=== PATIENT | female | born 1990 | race Caucasian/White ===

== ENCOUNTER 2016-12-29 15:21 | Emergency (ER) | payer MEDICAID ==
[~2016-12-29] VITALS: Ht 144.8 cm; Wt 50.8 kg
[~2016-12-29 15:21] MED LIST: IBUP80TA PO; NORCOTAB PO; PERCOCET PO; VITAPRTA PO
[2016-12-29] MEDS ORDERED: TRAZ50TA11 (15:44)
[2016-12-29] MEDS ORDERED: LITH150C (15:44)
[2016-12-29] MEDS ORDERED: FLUCONAZOLE 50MG TABLET PO ONE (19:15)
[2016-12-29] MEDS ORDERED: FLUCONAZOLE 100 MG TAB PO ONE (19:15)
[2016-12-29 19:25] VITALS: BP 107/64
== END 2016-12-29 19:30 | disposition home or self-care (01) ==
LOC: M ED 15:21
DX: N76.0 Acute vaginitis (principal); F31.9 Bipolar disorder, unspecified

== ENCOUNTER 2017-03-08 18:08 | Emergency (ER) | payer MEDICAID ==
[2017-03-08 19:27] LABS: CONTROL LINE UCG INT CTR LINE PRESENT
[2017-03-08] MEDS: MORPHINE 4 MG/ML 1ML SYRINGE IV (19:28)
[2017-03-08] MEDS: ONDANSETRON 4MG/2ML VIAL (J2405) IV (19:29)
[2017-03-08 19:34] LABS: KETONE, URINE AUTO RFX 2+ mg/dL (NEGATIVE); MUCUS, URINE RFX LARGE (NEGATIVE); NITRITE, URINE AUTO RFX NEGATIVE (NEGATIVE); RBC, URINE AUTO RFX 3 /HPF (0-3); SQUAM EPITHELIAL CELL UR AURFX 5 /HPF (0-6); WBC, URINE AUTO RFX 1 /HPF (0-3)
[2017-03-08] MEDS: NS 1,000 ML IV (19:35)
[2017-03-08 19:49] LABS: BASO % 0.4 % (0.0-1.0); EOS # 0.1 10^3/uL (0.0-0.50); EOS % 0.5 % (0.0-3.0); IMMATURE GRANULOCYTE % 0.3 % (0-0); LYMPH # 2.3 10^3/uL (1.5-6.5); LYMPH % 21.3 % (24.0-44.0); MEAN CORPUSCULAR HEMOGLOBIN 31.3 pg (27.0-33.0); MEAN CORPUSCULAR HGB CONC 34.4 g/dl (32.0-36.5); MONO # 0.5 10^3/uL (0.0-0.8); MONO % 4.9 % (0.0-5.0); NEUTROPHILS % 72.6 % (36.0-66.0); PLATELET COUNT, AUTOMATED 348 10^3/uL (150-450); RED CELL DISTRIBUTION WIDTH 12.2 % (11.5-14.5)
[2017-03-08 20:13] LABS: LEUKOCYTE ESTERASE UR AUTO RFX 1+ (NEGATIVE)
[2017-03-08 20:14] LABS: ANION GAP 8 MEQ/L (8-16); BLOOD UREA NITROGEN 12 MG/DL (7-18); CALCIUM LEVEL 8.7 MG/DL (8.5-10.1); CARBON DIOXIDE LEVEL 27 MEQ/L (21-32); CHLORIDE LEVEL 106 MEQ/L (98-107); CREATININE FOR GFR 0.54 MG/DL (0.55-1.02); GLOMERULAR FILTRATION RATE > 60.0 (>60); GLUCOSE, FASTING 86 MG/DL (70-105); POTASSIUM SERUM 3.9 MEQ/L (3.5-5.1); SODIUM LEVEL 141 MEQ/L (136-145)
== END 2017-03-08 22:25 | disposition home or self-care (01) ==
LOC: M ED 18:08
DX: N94.6 Dysmenorrhea, unspecified (principal); F17.210 Nicotine dependence, cigarettes, uncomplicated
CPT/HCPCS: J2405

== ENCOUNTER → 2020-01-12 | Outpatient (CLI) | payer MEDICAID ==
[~2020-01-12] MED LIST changes: +HYDR-3715 PO; +ISOVUE-370 76% 100ML VIAL As Ordered ONE; +LITH150C; -NORCOTAB PO; +TRAZ-252; +VITA50005 PO
--- NOTE | 2020-01-12 17:11 | REP ---
INDICATION: INFERTILITY; WILL WRITE ORDER. COMPARISON: None. TECHNIQUE: The endometrium was cannulated and contrast was injected by the attending cable splicer helper . Fluoroscopic spot films were acquired by MARIO Stewart, under the direct supervision of Dr. Mcnamara. Images reviewed prior with Dr. Mcnamara to dictation. FINDINGS: Fluoroscopy spot radiographs document filling of a normal endometrial cavity. There is normal isthmic and ampullary fallopian tube opacification, and bilateral fallopian tube blunting. No spill was visualized.. IMPRESSION: Bilateral fallopian tube occlusion. 1.1 minutes of fluoroscopy time was utilized for this procedure. Some fluoroscopic images are performed with last image hold technology. These images require no additional radiation. <Electronically signed by Ivonne Chambers > 01/12/20 1650 <Electronically signed by Piyush Mcnamara > 01/12/20 1703
== END ==
LOC: M RADPRO 11:47
PROVIDERS: ATTEND Obstetrics & Gynecology
DX: N97.1 Female infertility of tubal origin (principal)
CPT/HCPCS: 58340; 74740; Q9967

== ENCOUNTER 2020-12-03 20:07 | Emergency (ER) | payer MEDICAID ==
[~2020-12-03] VITALS: Ht 142.2 cm; Wt 59.9 kg
[~2020-12-03 20:07] MED LIST changes: -ISOVUE-370 76% 100ML VIAL As Ordered ONE
[2020-12-03] MEDS ORDERED: KETOROLAC 30 MG/ML 1ML VIAL As Ordered ONE (21:24)
[2020-12-03 21:34] LABS: BASO % 0.3 % (0.0-1.0); EOS # 0.1 10^3/uL (0.0-0.5); EOS % 0.7 % (0.0-3.0); HEMATOCRIT 39.5 % (36.0-47.0); HEMOGLOBIN 13.4 g/dl (12.0-15.5); LYMPH # 2.1 10^3/uL (1.5-5.0); LYMPH % 29.5 % (24.0-44.0); MEAN CORPUSCULAR HEMOGLOBIN 30.9 pg (27.0-33.0); MEAN CORPUSCULAR HGB CONC 33.9 g/dl (32.0-36.5); MONO # 0.5 10^3/uL (0.0-0.8); MONO % 6.3 % (2.0-8.0); NEUTROPHILS # 4.5 10^3/uL (1.5-8.5); NEUTROPHILS % 62.9 % (36.0-66.0); PLATELET COUNT, AUTOMATED 242 10^3/uL (150-450); RED BLOOD COUNT 4.34 10^6/uL (4.00-5.40); WHITE BLOOD COUNT 7.1 10^3/uL (4.0-10.0)
[2020-12-03] MEDS ORDERED: KETOROLAC 30 MG/ML 1ML VIAL IV ONE (21:45)
[2020-12-03 21:56] LABS: ALBUMIN 3.3 GM/DL (3.2-5.2); ALT/SGPT 25 U/L (12-78); BILIRUBIN,DIRECT < 0.1 MG/DL (0.0-0.2); BILIRUBIN,TOTAL 0.3 MG/DL (0.2-1.0); BLOOD UREA NITROGEN 12 MG/DL (7-18); CALCIUM LEVEL 8.5 MG/DL (8.5-10.1); CARBON DIOXIDE LEVEL 26 MEQ/L (21-32); CHLORIDE LEVEL 109 MEQ/L (98-107); CREATININE FOR GFR 0.74 MG/DL (0.55-1.30); GLOMERULAR FILTRATION RATE > 60.0 (>60); GLUCOSE, FASTING 95 MG/DL (70-100); LIPASE 178 U/L (73-393); POTASSIUM SERUM 3.9 MEQ/L (3.5-5.1); SODIUM LEVEL 143 MEQ/L (136-145); TOTAL PROTEIN 6.4 GM/DL (6.4-8.2)
[2020-12-03] MEDS ORDERED: CIPR-249 PO (23:33)
[2020-12-03] MEDS ORDERED: CIPROFLOXACIN 500MG TABLET PO ONE (23:35)
[2020-12-04 00:25] VITALS: BP 103/67
--- NOTE | 2020-12-05 08:48 | REP ---
INDICATION: right flank pain; r/o stone. COMPARISON: None. TECHNIQUE: Standard helical technique without the administration of intravenous or oral bowel preparatory contrast. Stone protocol utilized due to right flank pain FINDINGS: In the left lung base there is a 6 mm size nodule. Motion artifact obscures the detail on all images. There is no evidence of nephroureterolithiasis, hydronephrosis, or hydroureter. Limited evaluation of the solid intra-abdominal organs and gallbladder show no gross abnormalities. Limited evaluation of the pancreas and adrenal glands show no gross abnormalities. There are no urinary bladder calcifications. There is no free fluid or free air. Limited evaluation of the bowel loops and the mesenteries show no abnormalities. The osseous structures are within normal limits. IMPRESSION: 1. There is no evidence of acute disease. 2. Left lung base nodule as described above. According to the revised Fleischner society criteria CT examination of the chest is recommended for complete evaluation. <Electronically signed by Moses Morrell > 12/05/20 [id number]
--- NOTE | 2020-12-07 10:38 | ED PDOC ---
Post-Departure Follow-Up ct abd/p faxed to [facility] for fu Venancio Pillai MD Dec 07, 2020 10:38
== END 2020-12-04 00:30 | disposition home or self-care (01) ==
LOC: M ED 20:07
DX: N39.0 Urinary tract infection, site not specified (principal); R91.1 Solitary pulmonary nodule; F31.9 Bipolar disorder, unspecified
CPT/HCPCS: 74176; 80048; 80076; 81001; 83605; 83690; 84702; 85025; 87088; 87186; 96374; 99284; J1885

== ENCOUNTER → 2021-01-02 | Outpatient (CLI) | payer MEDICAID ==
[~2021-01-02] MED LIST changes: +CIPR-249 PO
--- NOTE | 2021-01-02 14:26 | REP ---
INDICATION: F/U LUNG NODULE COMPARISON: None. TECHNIQUE: Standard helical technique without intravenous contrast administration FINDINGS: The mediastinum and pulmonary che are within normal limits. There is no evidence of a mass or adenopathy. There are no pleural or pericardial effusions. The imaged upper abdomen and imaged osseous structures are within normal limits. Evaluation of the lung cedeño shows a 6 mm sized lung nodule seen previously in the left lower lobe on lung base images obtained during CT of the abdomen and pelvis on 12/03/2020 to be stable. In the right upper lobe there is a 3 mm size nodule. No other abnormal nodules, masses, or opacities are present. IMPRESSION: 1. The 6 mm sized nodule seen previously in the left lung base is stable. According to the revised Fleischner society criteria this represents a lung rads category 4A lesion for which a 3 month follow-up chest CT is recommended. 2. There is a 3 mm size nodule in the right upper lobe which represents a category 2 lesion which can be followed in 1 year. <Electronically signed by Msoes Morrell > 01/02/21 [id number]
== END ==
LOC: M RAD 13:42
PROVIDERS: ATTEND Nurse Practitioner Family
DX: R91.1 Solitary pulmonary nodule (principal)

== ENCOUNTER → 2021-05-05 | Outpatient (CLI) | payer MEDICAID | LOC: M RAD 13:50 | PROVIDERS: ATTEND Nurse Practitioner Family | DX: R93.89 Abnormal findings on diagnostic imaging of other specified body structures (principal) ==

== ENCOUNTER 2021-06-04 23:13 | Emergency (ER) | payer MEDICAID ==
[~2021-06-04] VITALS: Ht 142.2 cm; Wt 61.4 kg
[2021-06-04] MEDS ORDERED: PENI500T PO (23:32)
[2021-06-04] MEDS ORDERED: PANT40TA29 PO (23:32)
[2021-06-04] MEDS ORDERED: FLUTISP NARES (23:32)
[2021-06-04] MEDS ORDERED: PRED10TA2 PO (23:32)
[2021-06-05 02:11] LABS: HEMATOCRIT 39.1 % (36.0-47.0); HEMOGLOBIN 13.1 g/dl (12.0-15.5); MEAN CORPUSCULAR HEMOGLOBIN 30.5 pg (27.0-33.0); MEAN CORPUSCULAR HGB CONC 33.5 g/dl (32.0-36.5); MEAN CORPUSCULAR VOLUME 90.9 fl (80.0-96.0); PLATELET COUNT, AUTOMATED 392 10^3/uL (150-450); WHITE BLOOD COUNT 14.9 10^3/uL (4.0-10.0)
[2021-06-05 02:31] LABS: ALBUMIN 3.5 GM/DL (3.2-5.2); ALT/SGPT 32 U/L (12-78); BILIRUBIN,DIRECT < 0.1 MG/DL (0.0-0.2); BILIRUBIN,TOTAL 0.2 MG/DL (0.2-1.0); C REACTIVE PROTEIN QUANTITATIV < 0.30 MG/DL (0.00-0.30); LIPASE 196 U/L (73-393); TOTAL PROTEIN 6.5 GM/DL (6.4-8.2)
[2021-06-05 02:48] LABS: ATYPICAL LYMPH 4 % (0-5); EOSINOPHILS 1 % (0-3); LYMPHOCYTES 40 % (16-44); METAMYELOCYTES 1 % (0-0); MONOCYTES 2 % (0-5); NEUTROPHILS 52 % (28-66)
[2021-06-05 02:49] LABS: PLATELET ESTIMATE NORMAL (NORMAL)
[2021-06-05] MEDS ORDERED: BENZ200C70 PO (04:33)
[2021-06-05 05:08] VITALS: BP 106/66
== END 2021-06-05 05:12 | disposition home or self-care (01) ==
LOC: M ED 23:13
DX: M94.0 Chondrocostal junction syndrome [Tietze] (principal); R05.9 Cough, unspecified; F17.200 Nicotine dependence, unspecified, uncomplicated

== ENCOUNTER → 2022-06-13 | Outpatient (CLI) | payer MEDICAID ==
[~2022-06-13] MED LIST changes: +BENZ200C70 PO; +FLUTISP NARES; +ISOVUE-370 76% 100ML VIAL As Ordered ONE; +PANT40TA29 PO; +PENI500T PO; +PRED10TA2 PO
== END ==
LOC: M RAD 14:22
PROVIDERS: ATTEND Nurse Practitioner Family
DX: R91.8 Other nonspecific abnormal finding of lung field (principal)
CPT/HCPCS: 71260; Q9967

== ENCOUNTER → 2022-06-13 | Outpatient (CLI) | payer MEDICAID ==
[~2022-06-13] MED LIST changes: -ISOVUE-370 76% 100ML VIAL As Ordered ONE
[2022-06-13 15:43] LABS: PROLACTIN 8.89 NG/ML
[2022-06-13 15:44] LABS: FOLLICLE STIMULATING HORMONE 1.1 mIU/ML; LUTEINIZING HORMONE 0.4 mIU/ML; THYROID STIMULATING HORMONE 0.767 uIU/ML (0.55-4.78)
[2022-06-13 15:45] LABS: PROGESTERONE 14.34 NG/ML
== END ==
LOC: M LAB 14:30
PROVIDERS: ATTEND Specialist
DX: N91.2 Amenorrhea, unspecified (principal)

== ENCOUNTER 2022-06-28 16:08 | Emergency (ER) | payer MEDICAID ==
[~2022-06-28] VITALS: Ht 142.2 cm; Wt 63.7 kg
[~2022-06-28 16:08] MED LIST changes: +FLUT50SP17 NARES; -FLUTISP NARES
[2022-06-28] MEDS ORDERED: FAMO20TA5 (16:22)
[2022-06-28 18:12] LABS: URINE PREG TEST NEGATIVE (NEGATIVE)
[2022-06-28 18:17] LABS: BASO % 0.6 % (0.0-1.0); EOS # 0.1 10^3/uL (0.0-0.5); EOS % 1.7 % (0.0-3.0); HEMATOCRIT 39.1 % (36.0-47.0); HEMOGLOBIN 12.9 g/dl (12.0-15.5); LYMPH # 2.4 10^3/uL (1.5-5.0); LYMPH % 34.7 % (24.0-44.0); MEAN CORPUSCULAR HEMOGLOBIN 30.6 pg (27.0-33.0); MEAN CORPUSCULAR VOLUME 92.7 fl (80.0-96.0); MONO # 0.4 10^3/uL (0.0-0.8); MONO % 5.7 % (2.0-8.0); PLATELET COUNT, AUTOMATED 357 10^3/uL (150-450); RED BLOOD COUNT 4.22 10^6/uL (4.00-5.40)
[2022-06-28 18:39] LABS: LIPASE 41 U/L (12-53)
[2022-06-28 18:41] LABS: ALBUMIN 3.7 G/DL (3.2-5.2); ALKALINE PHOSPHATASE 63 U/L (46-116); ALT/SGPT 32 U/L (7.0-40); AST/SGOT 17 U/L (<34); BILIRUBIN,DIRECT 0.2 MG/DL (<0.4); BILIRUBIN,TOTAL 0.6 MG/DL (0.3-1.2); BLOOD UREA NITROGEN 13 MG/DL (9-23); CARBON DIOXIDE LEVEL 28 MMOL/L (20-31); CHLORIDE LEVEL 107 MMOL/L (98-107); CREATININE FOR GFR 0.51 MG/DL (0.55-1.30); GLOMERULAR FILTRATION RATE > 60.0 (>60); GLUCOSE, FASTING 91 MG/DL (60-100); POTASSIUM SERUM 4.4 MMOL/L (3.5-5.1); SODIUM LEVEL 140 MMOL/L (136-145); TOTAL PROTEIN 6.6 G/DL (5.7-8.2)
[2022-06-28] MEDS ORDERED: KETOROLAC 30 MG/ML 1ML VIAL IV ONE (19:20)
[2022-06-28] MEDS ORDERED: ISOVUE-370 76% 100ML VIAL As Ordered ONE (19:29)
[2022-06-28 20:36] VITALS: BP 94/60
[2022-06-28] MEDS ORDERED: ONDA4TAB6 PO (20:40)
== END 2022-06-28 20:51 | disposition home or self-care (01) ==
LOC: M ED 16:08
DX: R10.31 Right lower quadrant pain (principal); K21.9 Gastro-esophageal reflux disease without esophagitis; F31.9 Bipolar disorder, unspecified; R51.9 Headache, unspecified; N83.209 Unspecified ovarian cyst, unspecified side; F17.210 Nicotine dependence, cigarettes, uncomplicated
CPT/HCPCS: 36415; 74177; 80048; 80076; 81001; 83605; 83690; 84703; 85025; 99283; J1885; Q9967

== ENCOUNTER → 2023-05-17 | Outpatient (CLI) | payer MEDICAID, OTHER ==
[~2023-05-17] MED LIST changes: +FAMO20TA5; -FLUT50SP17 NARES; +FLUTISP NARES; +ONDA4TAB6 PO
== END ==
LOC: M LAB 09:33
PROVIDERS: ATTEND Nurse Practitioner Family
DX: R14.0 Abdominal distension (gaseous) (principal)

== ENCOUNTER 2023-06-07 07:54 | Day surgery (SDC) | payer OTHER ==
[~2023-06-07] VITALS: Ht 142.2 cm; Wt 67.6 kg
[~2023-06-07 07:54] MED LIST changes: +ESOM1CAP5 PO; +SUCR1TAB56 PO
[2023-06-07] MEDS: NS 1,000 ML IV ONE (09:35)
[2023-06-07] MEDS ORDERED: propofoL 200 MG/20 ML VIAL As Ordered ONE (09:47)
[2023-06-07] MEDS ORDERED: fentaNYL 100 MCG/2 ML INJECTION As Ordered ONE (09:47)
[2023-06-07] MEDS ORDERED: ePHEDrine SULFATE 25 MG/5 ML(5MG/ML) SYRINGE As Ordered ONE (10:27)
[2023-06-07 10:46] VITALS: TEMP 96.3
[2023-06-07 11:10] VITALS: BP 111/77; O2SAT 99
== END 2023-06-07 11:24 | disposition home or self-care (01) ==
LOC: M OPP 07:54
PROVIDERS: ATTEND Internal Medicine Gastroenterology
DX: K63.5 Polyp of colon (principal); R19.4 Change in bowel habit; K29.70 Gastritis, unspecified, without bleeding; K31.A0 Gastric intestinal metaplasia, unspecified; K31.89 Other diseases of stomach and duodenum; R14.0 Abdominal distension (gaseous); R11.2 Nausea with vomiting, unspecified; R10.13 Epigastric pain; F17.200 Nicotine dependence, unspecified, uncomplicated; Z79.899 Other long term (current) drug therapy; Z91.040 Latex allergy status
CPT/HCPCS: 43239; 45385; 88305; J3010

== ENCOUNTER → 2023-09-17 | Outpatient (CLI) | payer OTHER ==
[~2023-09-17] MED LIST changes: +E-Z-GAS II EFFERVESCENT PACKET (SODIUM BICARB./CITRIC ACID/SIMETHICONE) As Ordered ONE; +E-Z-HD 98% w/w 340GM SUSP BTL As Ordered ONE; +E-Z-PAQUE 96% w/w SUSP 176GM BTL As Ordered ONE; +ESOM1CAP20 PO; -ESOM1CAP5 PO; +ONDA-282 PO; -ONDA4TAB6 PO
== END ==
LOC: M RAD 07:59
PROVIDERS: ATTEND Surgery
DX: K11.9 Disease of salivary gland, unspecified (principal)